=== PATIENT | female | born 1950 ===

== ENCOUNTER → 2025-08-30 10:02 | Outpatient (BNVA) | payer MEDICARE, OTHER, SELFPAY | PROVIDERS: Visit Provider Psychiatry & Neurology Neurology | DX: R68.84 Jaw pain (principal); I10 Essential (primary) hypertension | CPT/HCPCS: 99204 ==

== ENCOUNTER → 2025-10-03 09:06 | Outpatient (BNVA) | payer MEDICARE, OTHER, SELFPAY | PROVIDERS: Visit Provider Psychiatry & Neurology Neurology | DX: R68.84 Jaw pain (principal); I10 Essential (primary) hypertension | CPT/HCPCS: 99213 ==